=== PATIENT | female | born 1975 | race Caucasian/White ===

== ENCOUNTER → 2025-04-15 11:52 | Outpatient (CLI) | payer OTHER, SELFPAY ==
--- NOTE | 2025-04-15 11:55 | DI.RAD.S_ITS ---
PROCEDURE: XR CHEST 2V INDICATIONS: COPD exacerbation TECHNIQUE: 2 views of the chest were acquired. COMPARISON: None. FINDINGS: Surgical changes and devices: None. Lungs and pleura: Lungs are clear. No pleural effusions or pneumothorax. Peribronchial cuffing. Mediastinum: Mediastinal contours are normal. Heart size is normal. Bones and chest wall: No suspicious bony abnormalities. Soft tissues appear unremarkable. IMPRESSION: Peribronchial cuffing, typically indicating infectious or inflammatory bronchitis. Dictated by: Mitch Cardoza M.D. on 04/15/2025 at 11:16 Approved by: Mitch Cardoza M.D. on 04/15/2025 at 11:18
== END ==
LOC: RAD 11:54
PROVIDERS: Referring Provider Chiropractor; Visit Provider Chiropractor
DX: J44.1 Chronic obstructive pulmonary disease with (acute) exacerbation (principal)
CPT/HCPCS: 71046